=== PATIENT | male | born 1955 | race Caucasian/White ===

== ENCOUNTER → 2016-06-22 | Outpatient (CLI) | payer MEDICARE ==
[2016-06-22 09:53] LABS: HEMOGLOBIN 16.8 gm/dl (14.0-17.5); RED BLOOD COUNT 5.25 M/UL (4.20-5.50); WHITE BLOOD COUNT 13.1 K/UL (4.5-11.0)
[2016-06-22 10:09] LABS: BUN/CREATININE RATIO 15 (0-10)
== END ==
LOC: LAB 09:00
PROVIDERS: Family Medicine
DX: E11.65 Type 2 diabetes mellitus with hyperglycemia (principal)
CPT/HCPCS: 36415; 80053; 82607; 83036; 85025

== ENCOUNTER 2020-03-31 20:11 | Inpatient (IN) | payer MEDICARE, OTHER ==
[~2020-03-31] VITALS: Ht 185.4 cm; Wt 113.4 kg
[~2020-03-31 20:11] MED LIST: COREG 25MG TAB25 MG PO; ELAVIL 50 MG TA50 MG PO; HUMALOG100 UNIT/1 SQ; HYDROXYZINE HCL25 MG PO; JARDIANCE10 MG PO; KLONOPIN TAB 00.5 MG PO; LIPITOR40 MG PO; NEURONTIN300 MG PO; NIFEREX 150 MG150 MG PO; PROBIOTIC1 EAC3 PO; REMERON30 MG PO; ST. JOSEPH ASPI81 MG PO; TIZANIDINE HCL2 MG PO; TOUJEO SC; VITAMIN B-121000 MC1 PO; VITAMIN D-32000 UNI1 PO; ZANTAC150 MG PO
[2020-03-31 21:04] LABS: HEMOGLOBIN 17.6 gm/dl (14.0-17.5); RED BLOOD COUNT 5.51 M/UL (4.20-5.50); WHITE BLOOD COUNT 14.7 K/UL (4.5-11.0)
[2020-03-31 21:20] LABS: BUN/CREATININE RATIO 15 (0-10)
[2020-04-01] MEDS ORDERED: CARVEDILOL25 MG PO (02:59)
[2020-04-01] MEDS ORDERED: AMITRIPTYLINE150 MG PO ×2 (02:59→03:08)
[2020-04-01] MEDS ORDERED: KLONOPIN0.5 MG PO (03:00)
[2020-04-01] MEDS ORDERED: NEURONTIN600 MG PO (03:01)
[2020-04-01] MEDS ORDERED: MIRTAZAPINE30 MG PO (03:02)
[2020-04-01] MEDS ORDERED: TIZANIDINE HCL2 MG PO (03:03)
[2020-04-01] MEDS ORDERED: ATORVASTATIN CA80 MG PO (03:03)
[2020-04-01] MEDS ORDERED: TOUJEO MAX300 UNIT/1 SQ (03:04)
[2020-04-01] MEDS ORDERED: OMEPRAZOLE20 MG PO (03:05)
[2020-04-01] MEDS ORDERED: HUMALOG100 UNIT/2 SC (03:05)
[2020-04-01] MEDS ORDERED: JARDIANCE10 MG PO ×2 (03:06→03:07)
--- NOTE | 2020-04-01 11:34 | NUR ---
NO NEURO COVERAGE AT THE HOSPITAL UNTIL Wednesday04/03/20. PROVIDER NOTIFIED.
[2020-04-01] MEDS ORDERED: PREDNISONE10 MG PO (14:02)
[2020-04-01] MEDS ORDERED: VALACYCLOVIR500 MG PO (14:08)
[2020-04-02 03:58] LABS: BUN/CREATININE RATIO 31 (0-10)
== END 2020-04-02 16:54 | disposition home or self-care (01) | DRG 74 ==
LOC: ER1 20:11 → CDU 21:36 → MED SURG 4 21:36
PROVIDERS: Physician Assistant; ADMIT Internal Medicine
DX: G51.0 Bell's palsy (principal); N17.9 Acute kidney failure, unspecified; I10 Essential (primary) hypertension; E11.22 Type 2 diabetes mellitus with diabetic chronic kidney disease; I12.9 Hypertensive chronic kidney disease with stage 1 through stage 4 chronic kidney disease, or unspecified chronic kidney disease; N18.30 Chronic kidney disease, stage 3 unspecified; Z79.899 Other long term (current) drug therapy; G62.9 Polyneuropathy, unspecified; Z90.49 Acquired absence of other specified parts of digestive tract; Z88.0 Allergy status to penicillin; E11.40 Type 2 diabetes mellitus with diabetic neuropathy, unspecified; D72.829 Elevated white blood cell count, unspecified
CPT/HCPCS: 36415; 70450; 70551; 71045; 80048; 80053; 82550; 82553; 82962; 83874; 84484; 85025; 93005; 96372; 99285; J1650; J7030; U0002

== ENCOUNTER → 2020-04-09 | Outpatient (CLI) | payer MEDICARE, OTHER ==
[~2020-04-09] MED LIST changes: +AMITRIPTYLINE150 MG PO; +ATORVASTATIN CA80 MG PO; +CARVEDILOL25 MG PO; +HUMALOG100 UNIT/2 SC; +KLONOPIN0.5 MG PO; +MIRTAZAPINE30 MG PO; +NEURONTIN600 MG PO; +OMEPRAZOLE20 MG PO; +PREDNISONE10 MG PO; +TOUJEO MAX300 UNIT/1 SQ; +VALACYCLOVIR500 MG PO
== END ==
LOC: RAD 16:42
DX: M25.552 Pain in left hip (principal)
CPT/HCPCS: 73502

== ENCOUNTER → 2020-05-09 | Outpatient (CLI) | payer MEDICARE, OTHER ==
[2020-05-09 10:50] LABS: RED BLOOD COUNT 5.33 M/UL (4.20-5.50); WHITE BLOOD COUNT 12.4 K/UL (4.5-11.0)
[2020-05-09 11:30] LABS: BUN/CREATININE RATIO 15 (0-10)
[2020-05-10 09:14] LABS: CREATININE, URINE 77.9 mg/dL (Not Estab.)
== END ==
LOC: LAB 09:04
PROVIDERS: Family Medicine
DX: E55.9 Vitamin D deficiency, unspecified (principal); E78.5 Hyperlipidemia, unspecified; I10 Essential (primary) hypertension; E53.8 Deficiency of other specified B group vitamins; E11.65 Type 2 diabetes mellitus with hyperglycemia
CPT/HCPCS: 36415; 80053; 80061; 82043; 82570; 82607; 83735; 85027

== ENCOUNTER → 2020-05-24 | Outpatient (CLI) | payer MEDICARE | LOC: EXRD 10:37 | DX: M79.89 Other specified soft tissue disorders (principal); R07.81 Pleurodynia | CPT/HCPCS: 71101; 73630 ==

== ENCOUNTER → 2020-09-23 | Outpatient (CLI) | payer MEDICARE ==
[2020-09-23 09:17] LABS: HEMOGLOBIN 16.5 gm/dl (14.0-17.5); RED BLOOD COUNT 5.49 M/UL (4.20-5.50)
[2020-09-23 09:36] LABS: BUN/CREATININE RATIO 15 (0-10)
== END ==
LOC: LAB 08:47
PROVIDERS: Family Medicine
DX: Z12.5 Encounter for screening for malignant neoplasm of prostate (principal); E53.8 Deficiency of other specified B group vitamins; E55.9 Vitamin D deficiency, unspecified; E78.5 Hyperlipidemia, unspecified; R35.1 Nocturia
CPT/HCPCS: 36415; 80053; 80061; 82607; 83735; 85027; G0103

== ENCOUNTER → 2020-11-13 | Outpatient (CLI) | payer MEDICARE | LOC: US 08:49 | DX: K76.0 Fatty (change of) liver, not elsewhere classified (principal); Z90.49 Acquired absence of other specified parts of digestive tract | CPT/HCPCS: 36415; 76705; 80076 ==

== ENCOUNTER → 2021-02-26 | Outpatient (CLI) | payer MEDICARE ==
[2021-02-26 09:36] LABS: HEMOGLOBIN 16.9 gm/dl (14.0-17.5); RED BLOOD COUNT 5.35 M/UL (4.20-5.50); WHITE BLOOD COUNT 13.1 K/UL (4.5-11.0)
[2021-02-27 07:10] LABS: VITAMIN D, 25-HYDROXY 27.5 ng/mL (30.0-100.0)
[2021-02-27 08:13] LABS: A/G RATIO 1.3 (1.2-2.2); ALKALINE PHOSPHATASE, S 194 IU/L (44-121); ALT (SGPT) 19 IU/L (0-44); AST (SGOT) 19 IU/L (0-40); BILIRUBIN, TOTAL 0.6 mg/dL (0.0-1.2); BUN 17 mg/dL (8-27); BUN/CREATININE RATIO 14 (10-24); CALCIUM, SERUM 9.3 mg/dL (8.6-10.2); CARBON DIOXIDE, TOTAL 25 mmol/L (20-29); CHLORIDE, SERUM 103 mmol/L (96-106); CHOLESTEROL, TOTAL 181 mg/dL (100-199); CREATININE, SERUM 1.19 mg/dL (0.76-1.27); EGFR IF AFRICN AM 72 (>59); EGFR IF NONAFRICN AM 62 (>59); GLOBULIN, TOTAL 3.2 g/dL (1.5-4.5); GLUCOSE, SERUM 158 mg/dL (65-99); HDL CHOLESTEROL 43 mg/dL (>39); LDL CHOLESTEROL CALC 117 mg/dL (0-99); LDL/HDL RATIO 2.7 ratio (0.0-3.6); MAGNESIUM 2.2 mg/dL (1.6-2.3); POTASSIUM, SERUM 4.8 mmol/L (3.5-5.2); PROTEIN, TOTAL, SERUM 7.3 g/dL (6.0-8.5); SODIUM, SERUM 142 mmol/L (134-144); T. CHOL/HDL RATIO 4.2 ratio (0.0-5.0); TRIGLYCERIDES 116 mg/dL (0-149)
[2021-02-27 09:13] LABS: CREATININE, URINE 55.3 mg/dL (Not Estab.); MICROALB/CREAT RATIO <5 (0-29)
[2021-02-27 15:13] LABS: MITOCHONDRIAL (M2) ANTIBODY <20.0 Units (0.0-20.0)
== END ==
LOC: LAB 08:52
PROVIDERS: Family Medicine
DX: E55.9 Vitamin D deficiency, unspecified (principal); E53.8 Deficiency of other specified B group vitamins; E78.5 Hyperlipidemia, unspecified; R74.8 Abnormal levels of other serum enzymes; E11.9 Type 2 diabetes mellitus without complications; I10 Essential (primary) hypertension; Z79.4 Long term (current) use of insulin
CPT/HCPCS: 36415; 80053; 80061; 82043; 82570; 82607; 83735; 85027

== ENCOUNTER → 2021-05-12 | Outpatient (CLI) | payer MEDICARE ==
[2021-05-12 09:38] LABS: HEMOGLOBIN 16.7 gm/dl (14.0-17.5); RED BLOOD COUNT 5.27 M/UL (4.20-5.50); WHITE BLOOD COUNT 11.8 K/UL (4.5-11.0)
== END ==
LOC: LAB 08:37
PROVIDERS: Family Medicine
DX: D72.829 Elevated white blood cell count, unspecified (principal)
CPT/HCPCS: 36415; 85025

== ENCOUNTER 2021-07-28 22:36 | Emergency (ER) | payer MEDICARE | END 2021-07-29 02:35 | disposition home or self-care (01) | LOC: ER1 22:36 | DX: I83.892 Varicose veins of left lower extremity with other complications (principal) | CPT/HCPCS: 99283 ==

== ENCOUNTER → 2021-09-04 | Outpatient (CLI) | payer MEDICARE ==
[2021-09-04 10:51] LABS: HEMOGLOBIN 16.2 gm/dl (14.0-17.5); RED BLOOD COUNT 5.27 M/UL (4.20-5.50)
[2021-09-04 11:15] LABS: BUN/CREATININE RATIO 15 (0-10)
== END ==
LOC: LAB 10:24
PROVIDERS: Family Medicine
DX: E78.5 Hyperlipidemia, unspecified (principal); E55.9 Vitamin D deficiency, unspecified; E53.8 Deficiency of other specified B group vitamins
CPT/HCPCS: 36415; 80053; 80061; 82607; 83735; 85027